=== PATIENT | female | born 1975 | race Caucasian/White ===

== ENCOUNTER → 2020-09-16 08:29 | Outpatient (CLI) | payer BC, SELFPAY ==
--- NOTE | ~2020-09-16 | XR_ITS ---
EXAMINATION: XR knee LT 2V DATE: 09/16/2020 08:57 INDICATION: Left knee pain TECHNIQUE: Two views of the left knee were obtained. COMPARISON: None. FINDINGS: Alignment is normal. No fracture or osteochondral lesion. There is mild tricompartmental os teoarthritis characterized by tiny marginal osteophytes. No joint effusion/synovitis. Soft tissues a re unremarkable. IMPRESSION: 1. No acute osseous abnormality. Reviewed, dictated and finalized at location A.
== END ==
PROVIDERS: PCP Family Medicine; Visit Provider Physician Assistant Medical
DX: M25.562 Pain in left knee (principal)
CPT/HCPCS: 73560

== ENCOUNTER → 2020-09-30 17:30 | Outpatient (CLI) | payer BC, SELFPAY ==
--- NOTE | ~2020-09-30 | MM_ITS ---
EXAMINATION: MM screening yves BI w roshni HISTORY: Screening mammogram TECHNIQUE: Craniocaudal and mediolateral oblique 3-D tomosynthesis images were obtained and synthetic 2-D images were generated. CAD analysis was submitted and interpreted. COMPARISON: No prior mammogram is available for comparison at this institution. BREAST PARENCHYMAL COMPOSITION: There are scattered areas of fibroglandular density. FINDINGS: There is no evidence of suspicious mass, calcification, or architectural distortion to sugg est malignancy in either breast. There has been no suspicious interval change. IMPRESSION: 1. No mammographic evidence of malignancy. 2. Recommend routine screening mammography in one year. BI-RADS Category 1: Negative Reviewed, dictated and finalized at location A.
== END ==
PROVIDERS: PCP Family Medicine; Visit Provider Student in an Organized Health Care Education/Training Program
DX: Z12.31 Encounter for screening mammogram for malignant neoplasm of breast (principal)
CPT/HCPCS: 77063; 77067

== ENCOUNTER → 2021-11-19 16:55 | Outpatient (CLI) | payer BC, SELFPAY ==
--- NOTE | ~2021-11-19 | MM_ITS ---
EXAMINATION: MM screening yves BI w roshni HISTORY: Screening mammogram TECHNIQUE: Craniocaudal and mediolateral oblique 3-D tomosynthesis images were obtained and synthetic 2-D images were generated. CAD analysis was submitted and interpreted. COMPARISON: 09/30/2020 BREAST PARENCHYMAL COMPOSITION: There are scattered areas of fibroglandular density. FINDINGS: There is no suspicious mass, calcification, or architectural distortion to suggest malignan cy in either breast. There has been no suspicious interval change. IMPRESSION: 1. No mammographic evidence of malignancy. 2. Recommend routine screening mammography in one year. BI-RADS Category 1: Negative Reviewed, dictated and finalized at location A.
== END ==
PROVIDERS: PCP Family Medicine; Visit Provider Student in an Organized Health Care Education/Training Program
DX: Z12.31 Encounter for screening mammogram for malignant neoplasm of breast (principal)
CPT/HCPCS: 77063; 77067

== ENCOUNTER → 2022-06-07 12:16 | Outpatient (CLI) | payer BC, SELFPAY ==
--- NOTE | ~2022-06-07 | US_ITS ---
EXAMINATION: US thyroid DATE: 06/07/2022 12:32 INDICATION: Thyrotoxicosis TECHNIQUE: Multiple ultrasound images of the thyroid were obtained. COMPARISON: None. FINDINGS: The right thyroid lobe measures 5.2 x 1.8 x 1.8 cm. The left thyroid lobe measures 4.1 x 1.8 x 2.0 c m. 7 mm very hypoechoic solid nodule is wider than tall with smooth margins and without echogenic fo ci in the inferior right thyroid lobe (TI-RADS 4, moderately suspicious , FNA if >=1.5 cm, annual fol lowup is >=1 cm). There is an additional 3 mm BI-RADS 1 cystic nodules in the right thyroid. There is diffuse heterogeneous echogenicity and coarsened echotexture with mild increased vascular flow on co julien Doppler throughout the thyroid. IMPRESSION: 1. Heterogeneous echogenicity with coarsened echotexture and increased vascular flow diffusely throug hout the thyroid which can be seen with thyroiditis. 2. Subcentimeter right thyroid nodules which do not meet size criteria for either biopsy or follow-up .. Reviewed, dictated and finalized at location L. IMPRESSION: 1. Heterogeneous echogenicity with coarsened echotexture and increased vascular flow diffusely throughout the thyroid which can be seen with thyroiditis. 2. Subcentimeter right thyroid nodules which do not meet size criteria for [facility] biopsy or follow-up..
== END ==
PROVIDERS: PCP Family Medicine; Visit Provider Internal Medicine
DX: E05.90 Thyrotoxicosis, unspecified without thyrotoxic crisis or storm (principal); E04.1 Nontoxic single thyroid nodule
CPT/HCPCS: 76536

== ENCOUNTER → 2023-01-28 11:23 | Outpatient (CLI) | payer BC, SELFPAY ==
--- NOTE | ~2023-01-28 | MM_ITS ---
EXAMINATION: MM screening [facility] BI w roshni HISTORY: Screening TECHNIQUE: Craniocaudal and mediolateral oblique 3-D tomosynthesis images were obtained and synthetic 2-D images were generated. CAD analysis was submitted and interpreted. COMPARISON: 11/19/2021 BREAST PARENCHYMAL COMPOSITION: There are scattered areas of fibroglandular density. FINDINGS: The right breast is stable without evidence for malignancy. There is a new mass in the uppe r inner quadrant of the left breast posteriorly. IMPRESSION: 1. New left breast mass, upper inner quadrant posteriorly. 2. Additional mammographic views and possible breast ultrasound are recommended. BI-RADS Category 0: Incomplete: Needs additional imaging evaluation. Reviewed, dictated and finalized at location A. RETE SAW OPERATOR IMPRESSION: 1. New left breast mass, upper inner quadrant posteriorly. 2. Additional mammographic views and possible breast ultrasound are recommended . BI-RADS Category 0: Incomplete: Needs additional imaging evaluation.
== END ==
PROVIDERS: PCP Student in an Organized Health Care Education/Training Program; Visit Provider Family Medicine
DX: Z12.31 Encounter for screening mammogram for malignant neoplasm of breast (principal); R92.8 Other abnormal and inconclusive findings on diagnostic imaging of breast
CPT/HCPCS: 77063; 77067

== ENCOUNTER → 2023-02-27 07:52 | Outpatient (CLI) | payer BC, SELFPAY ==
--- NOTE | ~2023-02-27 | MMUS_ITS ---
EXAMINATION: MM diagnostic yves LT w roshni, US breast LT limited HISTORY: Left breast mass on screening mammogram TECHNIQUE: Additional 3-D tomosynthesis images of the left breast were performed and synthetic 2-D im ages were generated. CAD analysis was submitted and interpreted. High resolution limited left breast ultrasound was performed. COMPARISON: 01/28/2023, 11/19/2021, 09/30/2020 FINDINGS: MAMMOGRAPHIC FINDINGS: There is a 6 mm obscured, oval, low density mass in the posterior third of the inner breast at the 9: 00 location, 11 cm from the nipple. No suspicious calcification or architectural distortion are ident ified. ULTRASOUND: There is a 2 mm round, hypoechoic, circumscribed mass with no posterior features or internal vascular ity at the 8:00 location, 11 cm from the nipple. IMPRESSION: 1. Probably benign left breast mass. 2. Recommend 6 month follow-up left diagnostic mammogram and possible ultrasound. BI-RADS category 3, probably benign findings. Reviewed, dictated and finalized at location A. NSTITCH FELLED SEAM OPERATOR IMPRESSION: 1. Probably benign left breast mass. 2. Recommend 6 month follow-up left diagnostic mammogram and possible ultrasoun d. BI-RADS category 3, probably benign findings.
== END ==
PROVIDERS: PCP Student in an Organized Health Care Education/Training Program; Visit Provider Nurse Practitioner Family
DX: N63.20 Unspecified lump in the left breast, unspecified quadrant (principal); R92.8 Other abnormal and inconclusive findings on diagnostic imaging of breast
CPT/HCPCS: 76642; 77061; 77065; G0279

== ENCOUNTER 2023-09-13 08:49 | Outpatient (CLI) | payer OTHER, SELFPAY ==
--- NOTE | ~2023-09-13 | MMUS_ITS ---
EXAMINATION: MM diagnostic yves LT w roshni, US breast LT limited HISTORY: Follow-up left breast mass TECHNIQUE: Additional 3-D tomosynthesis images of the left breast were performed and synthetic 2-D im ages were generated. CAD analysis was submitted and interpreted. High resolution Limited left breast ultrasound was performed. COMPARISON: Comparison to multiple prior studies sequentially, with oldest reviewed study dated 09/2020. BREAST PARENCHYMAL COMPOSITION: Not dense: There are scattered areas of fibroglandular density. FINDINGS: MAMMOGRAPHIC FINDINGS: There is a stable mass with central low density in the lower inner quadrant of the left breast private pilot iorly. No new masses, calcifications or architectural distortion. ULTRASOUND: Limited left breast ultrasound: At 6:00, 4 cm from the nipple, there is a 3 mm cyst. At 7:00, 6 cm fr om the nipple there is an oval hypoechoic mass without posterior features or internal vascularity vicky suring 4 mm, likely corresponding to the mammographic abnormality. IMPRESSION: 1. Probable benign 4 mm left breast mass at 7:00, 6 cm from the nipple. 2. Recommend 6 month follow-up Limited left breast ultrasound and bilateral mammogram BI-RADS category 3, probably benign findings. Reviewed, dictated and finalized at location B. IMPRESSION: 1. Probable benign 4 mm left breast mass at 7:00, 6 cm from the nipple. 2. Recommend 6 month follow-up Limited [facility] breast [facility], probably benign findings.
== END 2023-09-13 08:50 ==
LOC: MICIMG 08:50
PROVIDERS: PCP Student in an Organized Health Care Education/Training Program; Visit Provider Nurse Practitioner Family
DX: N63.20 Unspecified lump in the left breast, unspecified quadrant (principal); R92.8 Other abnormal and inconclusive findings on diagnostic imaging of breast
CPT/HCPCS: 76642; 77061; 77065; G0279